=== PATIENT | male | born 1995 | race Caucasian/White ===

== ENCOUNTER 2021-02-27 21:46 | Emergency (ER) | payer OTHER ==
[2021-02-27 21:58] VITALS: BP 122/82; TEMP 100.4; BMI 35.7
[2021-02-27] MEDS ORDERED: diazePAM 5 MG TABLET PO ONE (23:25)
[2021-02-27] MEDS ORDERED: KETOROLAC TROMETHAMINE 30 MG/1 ML VIAL IM ONE (23:25)
[2021-02-27] MEDS ORDERED: KETOROLAC TROMETHAMINE 30 MG/1 ML VIAL ONE (23:36)
[2021-02-27] MEDS ORDERED: diazePAM 5 MG TABLET ONE (23:37)
[2021-02-28 00:35] VITALS: PULSE 96
== END 2021-02-28 00:53 | disposition home or self-care (01) ==
LOC: JER 21:46 → JERFT 21:46
PROC: 3E0233Z Introduction of Anti-inflammatory into Muscle, Percutaneous Approach (ICD-10-PCS; principal; 2021-02-27)
DX: M25.512 Pain in left shoulder (principal); M54.2 Cervicalgia; V89.2XXA Person injured in unspecified motor-vehicle accident, traffic, initial encounter; Y92.9 Unspecified place or not applicable
CPT/HCPCS: 71046-TC-FY; 73030-TC-LT-FY; 99284-25